=== PATIENT | female | born 1960 | race Two or more races ===

== ENCOUNTER 2016-06-30 08:16 | Emergency (ER) | payer SELFPAY ==
[2016-06-30] MEDS ORDERED: KETOROLAC TROMETHAMINE 30 MG/ML 1 ML VIAL ONE (09:11)
[2016-06-30 09:16] LABS: ABSOLUTE NEUTROPHIL COUNT 15.5 K/mm3 (1.8-7.7); BASO % 0.2 % (0.2-1.0); EOS # 0.1 (0.0-0.5); EOS % 0.4 % (0.9-2.9); HEMATOCRIT 34.9 % (37.0-47.0); HEMOGLOBIN 11.2 gm/l (12.0-16.0); IMM NEUT # 0.1 K/mm3 (0-0.2); IMM NEUT% 0.8 % (0-1); LYMPH # 1.4 (1.0-4.8); LYMPH % 7.7 % (15-45); MEAN CELL VOLUME 89.3 fl (81.0-99.0); MEAN CORPUSCULAR HEMOGLOBIN 28.6 pg (27.0-31.0); MEAN CORPUSCULAR HGB CONC 32.1 g/dl (33.0-37.0); MONO # 1.5 (0.0-0.8); MONO % 7.8 % (4-12); NEUT % 83.1 % (43-75); PLATELET COUNT 279 K/mm3 (130-400); RED CELL DISTRIBUTION WIDTH 14.5 % (11.5-14.5)
[2016-06-30 09:32] LABS: URINE BILIRUBIN NEGATIVE (NEGATIVE); URINE BLOOD 2+ (NEGATIVE); URINE GLUCOSE (UA) NEGATIVE (NEGATIVE); URINE LEUKOCYTE ESTERASE 2+ (NEGATIVE); URINE NITRITE POSITIVE (NEGATIVE); URINE PROTEIN 1+ (NEGATIVE); URINE UROBILINOGEN NORMAL (0-1 mg/dl)
[2016-06-30 09:33] LABS: ALB/GLOB RATIO 0.9 (>1.0); ALBUMIN 3.4 gm/dL (3.5-5.7); CALCIUM 9.2 mg/dL (8.6-10.3)
[2016-06-30 09:38] LABS: URINE APPEARANCE SL CLOUDY; URINE COLOR YELLOW
[2016-06-30 09:41] LABS: URINE EPITHELIAL CELLS MANY /hpf
[2016-06-30 09:42] LABS: URINE BACTERIA 3+ BACILLI
--- NOTE | 2016-06-30 09:48 | CT ---
Exam Type: ABD/PELVIS W/O CON Date and Time: 06/30/2016 8:50 AM Clinical information: Left flank pain. Comparison: None Procedure: Imaging device: [employer] Aquilion [address] scanner 1 mm axial images were obtained through the abdomen and pelvis. Stacked reconstructed 3, 4 and 5 mm images were photographed in the axial coronal and sagittal planes. No oral contrast was utilized for this examination. Exam: Without intravenous contrast. FINDINGS: Lung bases:The visualized lung bases appear to be appropriate with no mass, effusion or consolidation visualized. Linear atelectasis or scarring is seen within the left pulmonary base. Liver: the liver is homogeneous with no discrete abnormality visualized. No definite findings of biliary dilatation are observed. Spleen: The spleen is homogeneous and does not appear to be enlarged. Gallbladder: Normal without enlargement or evidence of adjacent inflammatory changes. Pancreas: Normal without enlargement or evidence of adjacent inflammatory changes. Adrenal glands: Normal without enlargement or evidence of adjacent inflammatory changes. Abdominal aorta: The aorta is of normal caliber and appears to be without significant atherosclerotic disease. Kidneys: The kidneys appear to be of asymmetric size with the left kidney appearing larger than the right. Minimal left-sided perinephric inflammatory stranding is visualized. There may be a small cyst extending from the inferior pole of the left kidney, suboptimally visualized due to the lack of intravenous contrast material. No definite ureteral calculus is visualized. Considerations would include infection versus a recently passed stone. Bowel structures: The visualized bowel is of normal caliber without evidence of dilatation or obstruction. No free fluid or mesenteric inflammatory changes are identified. Appendix: The appendix is well-visualized and appears to be of normal caliber. No periappendiceal inflammatory changes or CT findings of appendicitis are currently observed. Bladder: The bladder is of normal contour. No wall thickening or significant distention is observed. Hernia: No abdominal wall or inguinal hernia is visualized on this examination. Adenopathy: No significant enlarged adenopathy is visualized. Osseous structures: Degenerative changes are identified at L5-S1 with disc height loss. Pelvic structures: There is a low-attenuation structure noted to the left aspect of the uterus measuring 2.7 cm in size. IMPRESSION: 1. Mild asymmetric left renal size with suggested perinephric inflammatory stranding. No definite intrarenal or intraureteral calculus is visualized however. Considerations include pyelonephritis versus a recently passed calculus. 2. A suspected cyst extending from the inferior aspect of the left kidney though the lesion is incompletely visualized due to the lack of intravenous contrast. 3. A 2.7 cm suspected left adnexal cyst. 4. A normal appearance of the appendix without CT evidence of appendicitis. 5. Lumbar degenerative changes at L5-S1.
[2016-06-30] MEDS ORDERED: CEFTRIAXONE 1 GRAM DUPLEX 50 ML IV ONE (10:04)
== END 2016-06-30 11:13 | disposition home or self-care (01) ==
LOC: ED 08:16
DX: N12 Tubulo-interstitial nephritis, not specified as acute or chronic (principal)
CPT/HCPCS: 83690; 85025; 80053; 81001; 74176; 96375; 99283; 96365; 99284; J1885; J0696